=== PATIENT | male | born 1995 | race Caucasian/White ===

== ENCOUNTER 2024-08-31 13:03 | Outpatient (CLI) | payer BC, SELFPAY | END 2024-08-31 13:04 | disposition home or self-care (01) | LOC: NFLDREF 09-02 02:20 | PROVIDERS: Visit Provider Nurse Practitioner Family | DX: R07.9 Chest pain, unspecified (principal) | CPT/HCPCS: 84484 ==

== ENCOUNTER 2024-09-07 11:42 | Outpatient (CLI) | payer BC, SELFPAY | END 2024-09-07 11:43 | disposition home or self-care (01) | PROVIDERS: Visit Provider Family Medicine | DX: R07.9 Chest pain, unspecified (principal) | CPT/HCPCS: 80053; 86140 ==

== ENCOUNTER 2024-09-14 11:30 | Outpatient (CLI) | payer BC, SELFPAY | END 2024-09-14 11:31 | disposition home or self-care (01) | LOC: LKVREF 11:33 | PROVIDERS: PCP Family Medicine; Visit Provider Family Medicine | DX: D64.9 Anemia, unspecified (principal); M25.50 Pain in unspecified joint | CPT/HCPCS: 86140 ==